=== PATIENT | female | born 1950 | race Caucasian/White ===

== ENCOUNTER 2022-06-24 16:49 | Inpatient (IN) ==
[2022-06-24] MEDS ORDERED: HYDROmorphone 1 MG/1 ML SYRINGE IV ONE (18:39)
[2022-06-24] MEDS ORDERED: ONDANSETRON 4 MG/2 ML VIAL IV STA (18:39)
[2022-06-24 18:44] LABS: Mucus,Urine Occasional /LPF (Occasional); RBC,Urine 1 /HPF (0-4); Squamous Epithelial Cell,Urine Occasional /HPF (0-10)
[2022-06-24 18:45] LABS: Bilirubin,Urine Negative (Negative); Blood, Urine Trace mg/dL (Negative); Glucose,Urine (UA) Negative (Negative); Ketones,Urine Trace mg/dL (Negative); Nitrite,Urine Negative (Negative); Protein,Urine Negative (Negative); Urine Appearance Clear (Clear); Urine Color Yellow (Yellow); Urine Urobilinogen 0.2 eU/dL (<2.0)
[2022-06-24 18:52] LABS: Barbiturates Screen,Urine Negative (Negative); Benzodiazepines Screen,Urine Positive (Negative); Cannabinoid Screen,Urine Negative (Negative); Opiate Screen,Urine Negative (Negative); Phencyclidine Screen,Urine Negative (Negative)
[2022-06-24 19:03] LABS: Basophils # 0.1 10*3/uL (0.0-0.2); Basophils % 0.4 % (0.0-0.8); Eosinophils % 0.1 % (0.00-10.9); Hematocrit 40.4 VOL% (35.7-47.0); Hemoglobin 13.4 GM/DL (12.0-16.0); Immature Granulocytes % 0.3 %; Immature Granulocytes Absolute 0.04 #; Lymphocytes # 1.2 10*3/uL (1.4-4.0); Lymphocytes % 10.6 % (21.3-54.2); Mean Corpuscular HGB Conc 33.2 GM/DL (32-36); Mean Corpuscular Volume 83.8 FL (87-102); Monocytes # 0.1 10*3/uL (0.11-0.8); Monocytes % 0.6 % (1.7-12.7); Platelet Count 347 T/CUMM (130-400); Red Blood Count 4.82 MC/CUMM (3.8-5.5); Red Cell Distribution Width 14.3 % (9.3-17.3); White Blood Count 11.5 T/CUMM (4-12)
[2022-06-24 19:20] LABS: Albumin 3.8 G/DL (3.4-5.0); Bilirubin,Total 0.5 MG/DL (0.20-1.00); Calcium 9.3 MG/DL (8.5-10.1); Osmolality,Calculated 279.5 MOS/KG (273-304); Potassium 5.6 MMOL/L (3.5-5.1); Total Protein 7.8 G/DL (6.4-8.2)
[2022-06-24 19:21] LABS: INR 0.9; PT Patient Result 10.3 SECS (10.1-12.1)
[2022-06-24] MEDS ORDERED: SODIUM CHLORIDE 0.9% 1,000 ML IV STA (19:43)
[2022-06-24] MEDS ORDERED: hydrALAZINE 20 MG/1 ML VIAL IV PRN (20:41)
[2022-06-24] MEDS ORDERED: ONDANSETRON 4 MG/2 ML VIAL IV PRN (20:41)
[2022-06-24] MEDS ORDERED: PROMETHAZINE 25 MG/1 ML VIAL IV PRN (20:41)
[2022-06-24] MEDS ORDERED: ACETAMINOPHEN 325 MG TABLET PO PRN (20:41)
[2022-06-24] MEDS ORDERED: SODIUM ZIRCONIUM CYCLOSILICATE 10 GM PACK PO ONE (20:48)
[2022-06-24] MEDS ORDERED: PROMETHAZINE INJ 25 MG in SODIUM CHLORIDE 0.9% 50 ML IV PRN (20:52)
[2022-06-24] MEDS: HYDROmorphone 1 MG/1 ML SYRINGE IV PRN (21:11)
[2022-06-24] MEDS ORDERED: KETOROLAC 30 MG/1 ML VIAL IV ONE (21:30)
[2022-06-24] MEDS: SODIUM CHLORIDE 0.9% 1,000 ML IV SCH (21:42)
[2022-06-24] MEDS ORDERED: BACLOFEN 10 MG TABLET PO ONE ×2 (22:23→22:30)
[2022-06-25] MEDS: HYDROmorphone 1 MG/1 ML SYRINGE IV PRN ×8 (00:19→22:45)
[2022-06-25 05:14] LABS: Basophils % 0.1 % (0.0-0.8); Hematocrit 40.6 VOL% (35.7-47.0); Hemoglobin 13.1 GM/DL (12.0-16.0); Immature Granulocytes % 0.4 %; Immature Granulocytes Absolute 0.04 #; Lymphocytes # 1.4 10*3/uL (1.4-4.0); Lymphocytes % 14.9 % (21.3-54.2); Mean Corpuscular HGB Conc 32.3 GM/DL (32-36); Mean Corpuscular Volume 86.2 FL (87-102); Mean Platelet Volume 9.7 FL (9.6-12.0); Monocytes # 0.1 10*3/uL (0.11-0.8); Neutrophils % 83.6 % (38.7-73.9); Platelet Count 290 T/CUMM (130-400); Red Blood Count 4.71 MC/CUMM (3.8-5.5); White Blood Count 9.2 T/CUMM (4-12)
[2022-06-25 05:38] LABS: Albumin 3.5 G/DL (3.4-5.0); Bilirubin,Total 0.4 MG/DL (0.20-1.00); Calcium 8.9 MG/DL (8.5-10.1); Osmolality,Calculated 278.7 MOS/KG (273-304); Potassium 4.2 MMOL/L (3.5-5.1); Total Protein 7.3 G/DL (6.4-8.2)
[2022-06-25] MEDS: SODIUM CHLORIDE 0.9% 1,000 ML IV SCH ×2 (06:30→17:26)
[2022-06-25] MEDS ORDERED: methylPREDNISolone SOD SUC 40 MG/1 ML VIAL IV STA (09:47)
[2022-06-25] MEDS: SODIUM CHLORIDE 0.9% IV SCH (10:45)
[2022-06-25] MEDS: METHYLPREDNISOLONE SOD SUC IV SCH (10:45)
[2022-06-25] MEDS: PANTOPRAZOLE 40 MG TABLET PO SCH (10:56)
[2022-06-25] MEDS: amLODIPine 5 MG TABLET PO SCH (10:56)
[2022-06-25] MEDS: diphenhydrAMINE CAP 25 MG CAPSULE PO PRN ×2 (12:00→21:40)
[2022-06-25 13:07] LABS: Folate > 24.00 NG/ML (5.38-24.0); Vitamin B12 453 PG/ML (211-911)
[2022-06-25] MEDS: PREGABALIN 100 MG CAPSULE PO SCH ×2 (14:37→21:50)
[2022-06-25] MEDS: BACLOFEN 10 MG TABLET PO SCH ×2 (14:38→21:50)
[2022-06-26] MEDS: SODIUM CHLORIDE 0.9% 1,000 ML IV SCH ×2 (03:30→12:47)
[2022-06-26] MEDS: HYDROmorphone 1 MG/1 ML SYRINGE IV PRN ×4 (04:34→16:50)
[2022-06-26] MEDS: diphenhydrAMINE CAP 25 MG CAPSULE PO PRN ×2 (06:20→21:22)
[2022-06-26 06:52] LABS: Basophils % 0.1 % (0.0-0.8); Hemoglobin 12.2 GM/DL (12.0-16.0); Immature Granulocytes % 0.4 %; Immature Granulocytes Absolute 0.04 #; Lymphocytes # 1.7 10*3/uL (1.4-4.0); Lymphocytes % 15.9 % (21.3-54.2); Mean Corpuscular HGB Conc 32.1 GM/DL (32-36); Monocytes # 0.5 10*3/uL (0.11-0.8); Monocytes % 4.8 % (1.7-12.7); Neutrophils % 78.8 % (38.7-73.9); Platelet Count 301 T/CUMM (130-400); Red Blood Count 4.32 MC/CUMM (3.8-5.5); White Blood Count 10.6 T/CUMM (4-12)
[2022-06-26 07:22] LABS: Calcium 8.6 MG/DL (8.5-10.1); Osmolality,Calculated 284.3 MOS/KG (273-304); Potassium 4.1 MMOL/L (3.5-5.1)
[2022-06-26] MEDS ORDERED: methylPREDNISolone SOD SUC 40 MG/1 ML VIAL IV ONE (09:00)
[2022-06-26] MEDS: PANTOPRAZOLE 40 MG TABLET PO SCH (09:01)
[2022-06-26] MEDS: PREGABALIN 100 MG CAPSULE PO SCH ×3 (09:01→21:14)
[2022-06-26] MEDS: BACLOFEN 10 MG TABLET PO SCH ×3 (09:02→21:14)
[2022-06-26] MEDS: amLODIPine 5 MG TABLET PO SCH (09:02)
[2022-06-26] MEDS: SODIUM CHLORIDE 0.9% IV SCH (10:35)
[2022-06-26] MEDS: METHYLPREDNISOLONE SOD SUC IV SCH (10:35)
[2022-06-26] MEDS ORDERED: DIAZEPAM 5 MG TABLET PO SCH (13:30)
[2022-06-26] MEDS: oxyCODONE IR 5 MG TABLET PO PRN (21:17)
[2022-06-27] MEDS: HYDROmorphone 1 MG/1 ML SYRINGE IV PRN ×3 (03:44→21:57)
[2022-06-27] MEDS: oxyCODONE IR 5 MG TABLET PO PRN ×2 (05:31→18:08)
[2022-06-27 06:24] LABS: Basophils % 0.1 % (0.0-0.8); Hematocrit 36.3 VOL% (35.7-47.0); Hemoglobin 11.8 GM/DL (12.0-16.0); Immature Granulocytes % 0.3 %; Immature Granulocytes Absolute 0.03 #; Lymphocytes # 1.8 10*3/uL (1.4-4.0); Lymphocytes % 19.5 % (21.3-54.2); Mean Corpuscular HGB Conc 32.5 GM/DL (32-36); Mean Corpuscular Volume 86.8 FL (87-102); Mean Platelet Volume 10.5 FL (9.6-12.0); Monocytes # 0.7 10*3/uL (0.11-0.8); Monocytes % 7.3 % (1.7-12.7); Neutrophils % 72.8 % (38.7-73.9); Platelet Count 275 T/CUMM (130-400); Red Blood Count 4.18 MC/CUMM (3.8-5.5); White Blood Count 9.1 T/CUMM (4-12)
[2022-06-27 06:55] LABS: Alanine Aminotransferase 18 U/L (13-56); Alkaline Phosphatase 91 U/L (45-117); Aspartate Amino Transferase 14 U/L (0-37); Bilirubin,Total < 0.39 MG/DL (0.20-1.00); Blood Urea Nitrogen 21 MG/DL (7-18); Calcium 8.7 MG/DL (8.5-10.1); Carbon Dioxide 28 MMOL/L (21-32); Chloride 109 MMOL/L (98-107); Glucose 97 MG/DL (74-106); Osmolality,Calculated 288.8 MOS/KG (273-304); Sodium 144 MMOL/L (136-145); Total Protein 6.4 G/DL (6.4-8.2)
[2022-06-27] MEDS: amLODIPine 5 MG TABLET PO SCH (08:38)
[2022-06-27] MEDS: BACLOFEN 10 MG TABLET PO SCH ×3 (08:38→21:56)
[2022-06-27] MEDS: LIDOCAINE 5% PATCH TRANSDERM SCH (08:39)
[2022-06-27] MEDS: PREGABALIN 100 MG CAPSULE PO SCH ×3 (08:39→21:56)
[2022-06-27] MEDS: PANTOPRAZOLE 40 MG TABLET PO SCH (08:39)
[2022-06-27] MEDS: diphenhydrAMINE CAP 25 MG CAPSULE PO PRN (08:39)
[2022-06-28] MEDS: HYDROmorphone 1 MG/1 ML SYRINGE IV PRN (03:37)
[2022-06-28 04:29] LABS: Basophils # 0.1 10*3/uL (0.0-0.2); Basophils % 0.6 % (0.0-0.8); Eosinophils # 0.1 10*3/uL (0.0-0.87); Eosinophils % 1.3 % (0.00-10.9); Hemoglobin 12.6 GM/DL (12.0-16.0); Immature Granulocytes % 0.5 %; Immature Granulocytes Absolute 0.05 #; Lymphocytes % 29.2 % (21.3-54.2); Mean Corpuscular HGB Conc 32.3 GM/DL (32-36); Mean Corpuscular Volume 85.9 FL (87-102); Mean Platelet Volume 9.5 FL (9.6-12.0); Monocytes % 9.6 % (1.7-12.7); Neutrophils % 58.8 % (38.7-73.9); Platelet Count 262 T/CUMM (130-400); Red Blood Count 4.54 MC/CUMM (3.8-5.5); White Blood Count 10.2 T/CUMM (4-12)
[2022-06-28 04:50] LABS: Albumin 3.2 G/DL (3.4-5.0); Bilirubin,Total 0.5 MG/DL (0.20-1.00); Calcium 8.8 MG/DL (8.5-10.1); Osmolality,Calculated 284.1 MOS/KG (273-304); Potassium 3.4 MMOL/L (3.5-5.1); Total Protein 6.7 G/DL (6.4-8.2)
[2022-06-28] MEDS: oxyCODONE IR 5 MG TABLET PO PRN (06:29)
[2022-06-28] MEDS ORDERED: POTASSIUM CHLORIDE 20 MEQ TABLET PO ONE (07:37)
[2022-06-28] MEDS ORDERED: POLYETHYLENE GLYCOL POWDER 17 GM PACK PO SCH (09:00)
[2022-06-28] MEDS: amLODIPine 5 MG TABLET PO SCH (09:04)
[2022-06-28] MEDS: PANTOPRAZOLE 40 MG TABLET PO SCH (09:04)
[2022-06-28] MEDS: BACLOFEN 10 MG TABLET PO SCH (09:04)
[2022-06-28] MEDS: PREGABALIN 100 MG CAPSULE PO SCH (09:04)
[2022-06-28] MEDS: LIDOCAINE 5% PATCH TRANSDERM SCH (09:05)
[2022-06-28 11:41] VITALS: BP 119/58
[2022-06-28] MEDS ORDERED: RIVASTIGMINE 1.5 MG CAPSULE PO SCH (21:00)
[2022-06-28] MEDS ORDERED: ENOXAPARIN 40 MG/0.4 ML SYRINGE SUBCUT SCH (21:00)
[2022-06-29] MEDS ORDERED: ASPIRIN EC 81 MG TABLET PO SCH (09:00)
== END 2022-06-28 14:53 | disposition swing bed (61) | DRG 551 ==
LOC: N.EDINP 16:49 → N.ED 16:49 → SUATTDRO 20:41 → N.2W 06-25 13:13 → SUATTDRO 06-26 08:29
PROVIDERS: ADMIT Internal Medicine; ATTEND Hospitalist